=== PATIENT | male | born 1995 | race Caucasian/White ===

== ENCOUNTER 2018-02-02 15:55 | Emergency (ER) | payer BC ==
[2018-02-02 16:20] VITALS: BP 108/61
--- NOTE | 2018-02-02 18:00 | UC ---
Epistaxis Nasal HPI - HPI Summary HPI Summary: The patient is a 23-year-old male that has had recurrent left sided epistaxis for the past month and a half. He has had about 5 nose bleeds. They usually start after blowing his nose or due to digital trauma. Last 10-15 minutes and resolved with pressure. Since then he has noticed a small lump on the nasal septum. The last nosebleed was about a week and half ago. - History of Current Complaint Chief Complaint: UCGeneralIllness Stated Complaint: NOSE BLEEDS, AND SWELLING Time Seen by Provider: 02/02/18 18:00 Hx Obtained From: Patient Onset/Duration: Gradual Onset, Lasting Minutes Timing: Intermittent Episode Lasting - 10 min Severity Initially: Mild Severity Currently: None Pain Intensity: 0 Pain Scale Used: 0-10 Numeric Character: Light Aggravating Factor(s): Nasal Trauma - Allergies/Home Medications Allergies/Adverse Reactions: Allergies Allergy/AdvReac Type Severity Reaction Status Date / Time No Known Allergies Allergy Unverified 04/26/15 17:41 PMH/Surg Hx/FS Hx/Imm Hx Previously Healthy: Yes - Surgical History Surgical History: Yes Surgery Procedure, Year, and Place: 2 Retinal detachments. APPY - Family History Known Family History: Positive: Cardiac Disease, Hypertension, Diabetes - Social History Alcohol Use: Occasionally Substance Use Type: None Smoking Status (MU): Former Smoker Review of Systems Constitutional: Negative Skin: Negative Eyes: Negative ENT: Negative Respiratory: Negative Cardiovascular: Negative Gastrointestinal: Negative Genitourinary: Negative Motor: Negative Neurovascular: Negative Musculoskeletal: Negative Neurological: Negative Psychological: Negative All Other Systems Reviewed And Are Negative: Yes Physical Exam Triage Information Reviewed: Yes Appearance: Well-Appearing, No Pain Distress, Well-Nourished Vital Signs: Initial Vital Signs Temp 98.4 F 02/02/18 16:17 Pulse 69 02/02/18 16:17 Resp 12 02/02/18 16:17 BP 108/61 02/02/18 16:17 Pulse Ox 100 02/02/18 16:17 Eyes: Positive: Conjunctiva Clear ENT: Positive: Hearing grossly normal, Pharynx normal, TMs normal, Other - ? granuloma left nasal septu. Negative: Nasal congestion, Nasal drainage, Tonsillar swelling, Tonsillar exudate, Trismus, Muffled voice, Hoarse voice Neck: Positive: Supple, Nontender Respiratory: Positive: Lungs clear, Normal breath sounds, No respiratory distress, No accessory muscle use Cardiovascular: Positive: RRR, No Murmur Bowel Sounds: Positive: Present Musculoskeletal: Positive: ROM Intact, No Edema Neurological: Positive: Alert Psychological Exam: Normal Skin Exam: Normal Epistaxis Nasal Course/Dx - Course Course Of Treatment: pt leaving for [place] [employer] in AM. Will be gone for mos. advised to see ENT while he is done there - Differential Dx/Diagnosis Provider Diagnoses: recurrent left epistaxis Discharge - Sign-Out/Discharge Documenting (check all that apply): Patient Departure All imaging exams completed and their final reports reviewed: No Studies - Discharge Plan Condition: Stable Disposition: HOME Patient Education Materials: Nosebleed (ED) Referrals: No Primary Care Phys,NOPCP [Primary Care Provider] - Additional Instructions: I suggest you see an ENT in [facility] about your recurrent nose bleeds - Billing Disposition and Condition Condition: STABLE Disposition: Home
== END 2018-02-02 18:15 | disposition home or self-care (01) ==
LOC: UCEAST 15:55
DX: R04.0 Epistaxis (principal); Z87.891 Personal history of nicotine dependence
CPT/HCPCS: 99211; G0463